=== PATIENT | female | born 1925 | race Caucasian/White ===

== ENCOUNTER 2017-04-06 08:21 | Day surgery (SDC) | payer MEDICARE, BC ==
[~2017-04-06] VITALS: Ht 152.4 cm; Wt 65.3 kg
[~2017-04-06 08:21] MED LIST: ACET325T9 PO; ALLO100T PO; ALPR0.25 PO; ASCO500T2 PO; BACITRACIN 50,000 UNIT in IV NORMAL SALINE 500ML BAG 500 ML IRR ONE; BUPIVAC MPF-EPI 0.5%-1:200000 30 ML VIAL. ONE; CYAN10005 PO; DIGO250T17 PO; FURO-68 PO; GARL1CAP PO; HYDROmorphone 2 MG/ML VIAL IV PRN; IV RINGERS,LACTATED 1000ML 1,000 ML IV SCH; LIDO30CR TP; LIDOCAINE 1% 1 ML SYRINGE. ID PRN; MORPHINE SULFATE 2 MG/ML DISP.SYRIN. IV PRN; OLME40TA12 PO; POTA20TA82 PO; PROCHLORPERAZINE 10 MG/2 ML VIAL. IV PRN; SOTA80TA48 PO; VITAMIN D; WARF5TAB7 PO; fentaNYL PF VIAL 100 MCG/2 ML VIAL IV PRN
[2017-04-06 09:32] LABS: INR 1.2 (0.8-1.1); PROTHROMBIN TIME PATIENT 14.1 SEC (11.7-14.0)
[2017-04-06] MEDS ORDERED: fentaNYL PF VIAL 100 MCG/2 ML VIAL ONE (09:44)
[2017-04-06] MEDS ORDERED: LIDOCAINE 2% PF Vial for OR 5 ML VIAL. ONE (09:44)
[2017-04-06] MEDS ORDERED: PROPOFOL 20 ML IV ONE (09:44)
[2017-04-06] MEDS ORDERED: OXYC-323 PO (10:02)
[2017-04-06] MEDS ORDERED: DEXAMETHASONE SOD PHOS 20 MG/5 ML VIAL. ONE (10:23)
[2017-04-06] MEDS ORDERED: SEVOFLURANE 61 TO 120 MINUTES. IH ONE (10:23)
[2017-04-06] MEDS ORDERED: ONDANSETRON PF 4 MG/2 ML VIAL. ONE (10:38)
--- NOTE | 2017-04-06 11:56 | PDOC ---
BRIEF OPERATIVE NOTE Pre-Op Diagnosis #[id number] LIH open LIH repair with mesh clint mccabe gen ebl 10 ivf 1100 ambrose well to rr stable. KARAN MCCABE MD Apr 06, 2017 11:56
[2017-04-06 13:10] VITALS: BP 136/70
--- NOTE | 2017-04-06 23:12 | OP ---
DATE OF SURGERY: PREOPERATIVE DIAGNOSIS: Left inguinal hernia. POSTOPERATIVE DIAGNOSIS: Left inguinal hernia. PROCEDURE: Open repair of indirect left inguinal hernia with mesh. SURGEON: Karan Mccabe M.D. ANESTHESIA: General. ESTIMATED BLOOD LOSS: 5 mL. IV FLUIDS: 1100 mL. INDICATIONS: The patient is an 89-year-old female who presents with a left inguinal hernia. She is here to have it repaired. FINDINGS: She had an indirect left inguinal hernia. DESCRIPTION OF PROCEDURE: After informed consent was obtained, the patient was taken to the operating room and placed in the supine position. After adequate induction of general anesthesia, she was prepped and draped in usual sterile fashion. An ilioinguinal nerve block was performed 1 cm medially and 1 cm inferior to the left ASIS with local anesthetic. Skin incision was then made in the left groin and carried through subcutaneous tissue with cautery. Navid's was divided with cautery. The external oblique fascia was opened sharply and then opened to and through the external inguinal ring. The hernia was identified, it was an indirect hernia. The round ligament was cut and divided. The indirect sac was dissected away from the surrounding tissue and allowed to be placed back within the preperitoneal space. A large mesh plug was placed in the indirect inguinal ring into the preperitoneal space, it was then sutured circumferentially with a 2-0 Prolene suture in an interrupted fashion. A 3 x 6 piece of onlay Prolene mesh was then brought onto the field. This was not the onlay mesh that was in the plug and patch kit. This was a separate piece of Prolene that was cut and fashioned, it was larger than the piece of mesh that was included in the kit and it allowed generous coverage of the inguinal floor and there was not a slit within the onlay that I fashioned since she did not have a spermatic cord to encircle. At this point this onlay piece of Prolene mesh was sutured to the conjoint tendon to the pubic tubercle along the shelving edge of the inguinal ligament and then loosely along the internal oblique musculature. Her ilioinguinal nerve was identified and it did have an exit point in the external oblique fascia and then in the subcutaneous fascia. It was preserved throughout the procedure and care was taken to make sure that it was not lying awkwardly along the onlay of the mesh and the sutures were not placed in or near the ilioinguinal nerve. The external oblique fascia was closed in a running fashion with a 3-0 Vicryl suture. Of note, prior to doing so the onlay mesh was positioned so it had overlap on the internal oblique musculature, overlap at the pubic tubercle and overlap at the internal ring laterally, ____ the external oblique aponeurosis, this was approximated with 3-0 Vicryl in a running fashion. Navid's was approximated with 3-0 Vicryl in an interrupted [id number] fashion. Skin incision was closed with 4-0 Monocryl in subcuticular fashion. Sterile dressings were placed, which consisted of Mastisol, Steri-Strips, and Tegaderm. She tolerated the procedure well. There were no apparent complications. She is in the process of being transferred in stable condition to the recovery room. KARAN MCCABE MD DR: JENNIFER/rosas JOB#: [id number] / [id number] ANALILIA Mayers MD, WILLIAM MD
== END 2017-04-06 13:29 | disposition home or self-care (01) ==
LOC: SURG 08:21
PROVIDERS: ATTEND Surgery
DX: K40.90 Unilateral inguinal hernia, without obstruction or gangrene, not specified as recurrent (principal); I48.91 Unspecified atrial fibrillation; I10 Essential (primary) hypertension; M19.90 Unspecified osteoarthritis, unspecified site; F17.200 Nicotine dependence, unspecified, uncomplicated; Z96.643 Presence of artificial hip joint, bilateral; Z87.39 Personal history of other diseases of the musculoskeletal system and connective tissue; Z79.01 Long term (current) use of anticoagulants; Z88.0 Allergy status to penicillin; Z88.8 Allergy status to other drugs, medicaments and biological substances; Z91.048 Other nonmedicinal substance allergy status
CPT/HCPCS: 36415; 49505; 85610; C1781; J0690; J1100; J2001; J2405; J2704; J3010; J3490; J7040; J7120; J1956